=== PATIENT | male | born 2000 | race Asian ===

== ENCOUNTER 2020-05-03 15:57 | Inpatient (IN) | payer MEDICAID ==
[~2020-05-03] VITALS: Ht 177.8 cm; Wt 92.6 kg
[2020-05-03 17:15] LABS: BASOPHILS % (AUTO) 0.4 % (0.0-2.0); EOSINOPHILS % (AUTO) 0.7 % (1.0-6.0); HEMOGLOBIN 16.2 g/dL (13.5-17.5); LYMPHOCYTES # (AUTO) 1.4 K/uL (1.0-4.8); LYMPHOCYTES % (AUTO) 16.1 % (22.0-44.0); MEAN CORPUSCULAR HEMOGLOBIN 28.9 pg (26.0-34.0); MEAN CORPUSCULAR HGB CONC 33.8 G/dL (31.0-37.0); MEAN CORPUSCULAR VOLUME 86 fL (80-100); MONOCYTES # (AUTO) 0.6 K/uL (0.1-1.0); MONOCYTES % (AUTO) 6.6 % (2.0-9.0); NEUTROPHILS # (AUTO) 6.7 K/uL (1.8-7.7); NEUTROPHILS % (AUTO) 76.2 % (40.0-70.0); PLATELET COUNT (AUTO) 186 K/uL (150-450); RED BLOOD CELL COUNT(AUTO) 5.62 MIL/uL (4.50-5.90)
[2020-05-03 17:55] LABS: ANION GAP 6 mmol/L (8-16); CALCIUM, TOTAL 9.4 mg/dL (8.8-10.5); CARBON DIOXIDE 29 mmol/L (22-29); CHLORIDE 103 mmol/L (98-107); CREATININE 0.97 mg/dL (0.60-1.30); GLOMERULAR FILTR. RATE CALC > 60 mL/min (>60); GLUCOSE,RANDOM 121 mg/dL (70-110); SODIUM SERUM 138 mmol/L (136-145); UREA NITROGEN, BLOOD 12 mg/dL (7-18)
[2020-05-03 17:59] LABS: COVID AG,FIA SOURCE NASOPHARYNGEAL
[2020-05-03 18:01] LABS: ALANINE AMINOTRANSFERASE 49 U/L (12-78); ALBUMIN 3.5 g/dL (3.4-5.0); ALKALINE PHOSPHATASE 88 U/L (46-116); ASPARTATE AMINOTRANSFERASE 20 U/L (15-37); BILIRUBIN,TOTAL 0.5 mg/dL (0.1-1.0); TOTAL PROTEIN, SERUM 7.6 g/dL (6.4-8.2)
[2020-05-03] MEDS ORDERED: ZOLPIDEM TARTRATE 10 MG TABLET PO PRN (20:15)
[2020-05-03] MEDS ORDERED: QUEtiapine FUMARATE 100 MG TABLET PO PRN (20:15)
[2020-05-03] MEDS ORDERED: LORazepam 2 MG TABLET PO PRN (20:15)
[2020-05-03 20:46] LABS: AMPHET/METH SCREEN,URINE NEGATIVE (NEGATIVE); BARBITURATE SCREEN, URINE NEGATIVE (NEGATIVE); BENZODIAZEPINES SCREEN,URINE NEGATIVE (NEGATIVE); CANNABINOID SCREEN,URINE NEGATIVE (NEGATIVE); COCAINE SCREEN,URINE NEGATIVE (NEGATIVE); METHADONE SCREEN, URINE NEGATIVE (NEGATIVE); OPIATE SCREEN,URINE NEGATIVE (NEGATIVE)
[2020-05-03 20:47] LABS: PHENCYCLIDINE SCREEN,URINE NEGATIVE (NEGATIVE)
[2020-05-04 00:24] VITALS: BP 138/72
[2020-05-04] MEDS ORDERED: INFLUENZA VIRUS VACCINE QVS 2020-21 (6MO+)/PF 60 MCG/0.5 ML SYRINGE IM ONE (03:45)
[2020-05-04] MEDS ORDERED: IBUPROFEN 400 MG TABLET PO PRN (08:00)
[2020-05-04] MEDS ORDERED: ALBUTEROL SULFATE HFA 90 MCG/PUFF 8 GM INHALER IH PRN (08:00)
[2020-05-04] MEDS ORDERED: GuaiFENesin/D-METHORPHAN [SUGAR-FREE] 200-20MG/10 ML SYRUP UDCUP PO PRN (08:00)
[2020-05-04] MEDS ORDERED: MAGNESIUM HYDROXIDE SUSPENSION 30 ML UDCUP PO PRN (08:00)
[2020-05-04] MEDS ORDERED: ACETAMINOPHEN 325 MG TABLET PO PRN (08:00)
[2020-05-04] MEDS ORDERED: DOCUSATE SODIUM 100 MG CAPSULE PO PRN (08:00)
[2020-05-04] MEDS ORDERED: PETROLATUM,WHITE 28 GM JELLY TP PRN (08:00)
[2020-05-04] MEDS ORDERED: ONDANSETRON HCL 4 MG TABLET PO PRN (08:00)
[2020-05-04] MEDS ORDERED: MAG HYDROX/AL HYDROX/SIMETH ES 30 ML SUSPENSION UDCUP PO PRN (08:00)
[2020-05-04] MEDS ORDERED: CloNIDine HCL 0.1 MG TABLET PO PRN (08:00)
[2020-05-04] MEDS ORDERED: NICOTINE 14 MG/24 HOUR PATCH TD PRN (08:00)
[2020-05-04] MEDS ORDERED: LOPERAMIDE HCL 2 MG CAPSULE PO PRN (08:00)
[2020-05-04 08:32] LABS: HEMOGLOBIN A1C 5.3 % (3.8-5.6)
[2020-05-04 08:36] VITALS: BP 136/86
[2020-05-04 08:41] LABS: CHOL/HDL RATIO 4.8 (4.2-7.3); FREE T4 (FREE THYROXINE) 1.05 ng/dL (0.76-1.46); THYROID STIMULATING HORMONE 4.04 uIU/mL (0.36-3.74)
[2020-05-04 19:04] LABS: COVID AG,FIA SOURCE NASAL SWAB
[2020-05-04 22:29] VITALS: BP 133/84
[2020-05-05 02:13] VITALS: BP 129/76
[2020-05-05 08:04] VITALS: BP 135/69
[2020-05-05] MEDS: BuPROPion HCL XL 150 MG ER TABLET PO SCH (13:06)
[2020-05-05 16:03] VITALS: BP 131/75
[2020-05-06 00:31] VITALS: BP 128/74
[2020-05-06 08:04] VITALS: BP 121/65
[2020-05-06] MEDS: BuPROPion HCL XL 150 MG ER TABLET PO SCH (09:04)
[2020-05-06 16:19] VITALS: BP 139/83
[2020-05-06] MEDS: OLANZapine 5 MG TABLET PO SCH (21:02)
[2020-05-07 02:49] VITALS: BP 128/82
[2020-05-07 08:03] VITALS: BP 122/57
[2020-05-07] MEDS: BuPROPion HCL XL 150 MG ER TABLET PO SCH (08:20)
[2020-05-07 16:03] VITALS: BP 142/76
[2020-05-07] MEDS: OLANZapine 5 MG TABLET PO SCH (20:44)
[2020-05-08 06:11] VITALS: BP 122/74
[2020-05-08] MEDS: BuPROPion HCL XL 150 MG ER TABLET PO SCH (08:38)
[2020-05-08] MEDS ORDERED: OLAN5TAB2 PO (13:11)
[2020-05-08] MEDS ORDERED: BUPR-93 PO (13:58)
[2020-05-08 16:08] VITALS: BP 130/80
== END 2020-05-08 17:25 | disposition home or self-care (01) | DRG 751 ==
LOC: EMS 16:00 → B2S 21:00 → B3A 05-04
PROVIDERS: ADMIT Psychiatry & Neurology Psychiatry; ATTEND Psychiatry & Neurology Psychiatry
DX: F32.2 Major depressive disorder, single episode, severe without psychotic features (principal); E78.5 Hyperlipidemia, unspecified; F41.1 Generalized anxiety disorder; R45.851 Suicidal ideations; Z20.828 Contact with and (suspected) exposure to other viral communicable diseases; R10.13 Epigastric pain; R73.9 Hyperglycemia, unspecified; F99 Mental disorder, not otherwise specified; Z28.21 Immunization not carried out because of patient refusal
CPT/HCPCS: 83036; 84439; 84443; 87426; G0480